=== PATIENT | female | born 1990 | race American Indian/Alaskan Native ===

== ENCOUNTER 2017-03-04 11:57 | Emergency (ER) | payer OTHER ==
[2017-03-04 12:05] VITALS: BP 134/80
[2017-03-04] MEDS ORDERED: FLEXERIL PO ONE (12:59)
[2017-03-04] MEDS ORDERED: DECADRON IM ONE (12:59)
[2017-03-04] MEDS ORDERED: NORCO 10/325 PO ONE (12:59)
--- NOTE | 2017-03-04 13:00 | Emergency Department Report ---
ED Neck Pain/Injury HPI - General Chief Complaint: Neck Pain/Injury Stated Complaint: NECK PAIN Time Seen by Provider: 03/04/17 12:59 Source: patient, family Mode of arrival: Ambulatory Limitations: No Limitations - History of Present Illness MD Complaint: neck pain -: Gradual, month(s) Place: home Severity: moderate Quality: crushing, aching Consistency: constant Improves With: none Worsens With: movement of neck Context: other (woke up one morning w stiff neck; no trauma) Associated Symptoms: denies: headache, fever, numbness, tingling, weakness, vertigo, difficulty walking, swollen glands, difficulty swallowing, nausea, vomiting Treatments Prior to Arrival: Acetaminophen, Ibuprofen - Related Data Previous Rx's Medication Instructions Recorded Last Taken Type Cyclobenzaprine [Flexeril] 10 mg PO TID PRN #10 tablet 03/04/17 Unknown Rx methylPREDNISolone [Medrol] 4 mg PO DAILY #1 tab.ds.pk 03/04/17 Unknown Rx traMADol [Ultram] 50 mg PO Q6HR PRN #12 tablet 03/04/17 Unknown Rx Allergies Allergy/AdvReac Type Severity Reaction Status Date / Time No Known Allergies Allergy Verified 03/04/17 12:06 ED Review of Systems ROS: Stated complaint: NECK PAIN Other details as noted in HPI Comment: All other systems reviewed and negative Constitutional: denies: fever Musculoskeletal: other (neck pain chloe w chin to chest and rotation to right.) ED Past Medical Hx - Past Medical History Previous Medical History?: No - Surgical History Past Surgical History?: No - Social History Smoking Status: Current Every Day Smoker Substance Use Type: None - Medications Home Medications: Home Medications Medication Instructions Recorded Confirmed Last Taken Type Cyclobenzaprine [Flexeril] 10 mg PO TID PRN #10 tablet 03/04/17 Unknown Rx methylPREDNISolone [Medrol] 4 mg PO DAILY #1 tab.ds.pk 03/04/17 Unknown Rx traMADol [Ultram] 50 mg PO Q6HR PRN #12 tablet 03/04/17 Unknown Rx ED Physical Exam - General Limitations: No Limitations General appearance: alert - Head Head exam: Present: atraumatic - Eye Eye exam: Present: normal appearance Pupils: Present: normal accommodation - ENT ENT exam: Present: mucous membranes moist - Neck Neck exam: Absent: tenderness, meningismus, full ROM (pain w rotation to right and front; no trauma), lymphadenopathy, thyromegaly - Respiratory Respiratory exam: Present: normal lung sounds bilaterally - Cardiovascular Cardiovascular Exam: Present: regular rate - GI/Abdominal GI/Abdominal exam: Present: soft, normal bowel sounds - Rectal Rectal exam: Present: deferred - Extremities Exam Extremities exam: Present: normal inspection, full ROM, normal capillary refill. Absent: tenderness, pedal edema, joint swelling - Back Exam Back exam: Present: normal inspection, muscle spasm (r trap). Absent: full ROM , tenderness, CVA tenderness (R), CVA tenderness (L), paraspinal tenderness, vertebral tenderness, rash noted - Neurological Exam Neurological exam: Present: alert, oriented X3, CN II-XII intact, normal gait, reflexes normal - Psychiatric Psychiatric exam: Present: normal affect, normal mood - Skin Skin exam: Present: warm, dry, intact ED Course Vital Signs 03/04/17 03/04/17 12:02 14:02 Temperature 98.3 F Pulse Rate 102 H Respiratory 16 18 Rate Blood Pressure 134/80 O2 Sat by Pulse 98 Oximetry - Reevaluation(s) Reevaluation #1: 03/04/17 14:35 to er w neck pain no trauma for weeks now see exam medicated w relief pt got new pillows last pm dc home w dc poc taking po neuro intact ambulatory ED Medical Decision Making - Medical Decision Making see note - Differential Diagnosis torticullus Critical care attestation.: If time is entered above; I have spent that time in minutes in the direct care of this critically ill patient, excluding procedure time. ED Disposition Clinical Impression: Torticollis Disposition: DC- TO HOME OR SELFCARE Is pt being admited?: No Does the pt Need Aspirin: No Condition: Stable Instructions: Spasmodic Torticollis (ED) Additional Instructions: heat compresses meds as ordered follow up with ortho as discussed Referrals: PRIMARY CARE, [Primary Care Provider] - 3-5 Days MARIO FARRELL MD [Staff Physician] - 3-5 Days Time of Disposition: 13:43
== END 2017-03-04 14:30 | disposition home or self-care (01) ==
LOC: ED 11:57
DX: M43.6 Torticollis (principal); F17.200 Nicotine dependence, unspecified, uncomplicated
CPT/HCPCS: 96372; 99282; J1100